=== PATIENT | male | born 1980 | race African-American/Black ===

== ENCOUNTER 2022-02-11 05:58 | Emergency (ER) | payer OTHER, SELFPAY ==
[2022-02-11] VITALS (41 sets, daily range): BP systolic 153–186; BP diastolic 76–120; PULSE 54–95; RESP 12–38; TEMP 37.2; O2SAT 98–100
--- NOTE | 2022-02-11 05:45 | RT.EKG_ITS ---
APPROVED REPORT Exam: Resting ECG Reason for Exam: withdrawal Patient Location: E HR:67 bpm ECG Measurements Heart Rate 67 AXIS WA 152 P 67 QRSd 90 QRS 87 QT 438 T 124 QTc 462 Conclusion Sinus rhythm...normal P axis, V-rate 60- 99 Probable left atrial enlargement...P >50mS, <-0.10mV V1 Probable LVH with secondary repol abnrm...multiple LVH criteria
--- NOTE | 2022-02-11 06:17 | ED.GENADUL_ITS ---
Discharge Plan Disposition Patient Disposition: STILL A PATIENT Condition: Stable Discharge Details Clinical Impression: Substance abuse, Chest pain, Abdominal pain Primary Care Provider: Liz Fonseca ED Provider: Giovani Casillas Home Meds and New Rx's Prescriptions: No Action ibuprofen 200 MG capsule 200 mg PO PRN PRN Medical Decision Making 41 yo male who had a prior thoracic aneurysm and was transferred to [facility] in 2018 and he states he had an aortic arch and valve replaced. He has been abusing substances recently including coacine and fentanyl and hasn't been taking any of his medications including warfarin. He was incarcerated two days ago and since being at the [facility] has had increased lethargy, nausea, sweats, and also abdominal and chest pain. He reportedly had a temp to 101 prior to arrival as well with the [facility] staff. He is drowsy on exam but answers to voice. He denies headaches, neck stiffnes, dyspnea, rashes. He denies ivdu states he was primarily smoking the drugs used on the streets. He is moving all his extremities equally, perrl, eomi. Clear lung sounds, no murmurs identified, is tender on abdominal exam in the ruq and rlq without guarding. He states his chest pain sometimes radiates to the back. Unclear etiology for his symptoms though suspect primarily cocaine and opiate withdrawal. Given his complaints of chest/abd/back pain will evaluate for possible aortic causes such as dissection with cta chest/abd/pelvis, along with ekg/troponin to evaluate for acs. Will also obtain cbc, cmp, lipase, and treat his symptoms with a dose of ativan as it is likely related to drug withdrawal. pt stable, feels mildly better after ativan, pending labs and imaging results, will be signed out to oncoming provider pending lab work and imaging results, dispo Differential Diagnosis Differential Diagnosis: cocaine withdrawal, aortic dissection, drug reaction Medical Records Medical records reviewed: Yes I reviewed the patient's medical records. ECG Data Attestation: I personally reviewed and interpreted this ECG (s) as follows: Prior ECG tracings: available for review Interpretation: sinus rhythm, rate of 67, pr 152, no stemi HPI General Mode of arrival: ambulatory . Date/Time Provider Initiated Documentation: 02/11/22 06:07 . Limitations to Documentation: no limitations . Information obtained by: patient and police . History of Present Illness 41 year old M presents to the emergency department with the chief complaint of detoxing, described as moderate, and it has been constant. No relieving factors improve symptom(s), No exacerbating factors reported . Patient notes chest pain and weakness. Patient did receive the following treatments prior to arrival, none Related Data Home Medications Medication Instructions Recorded Confirmed ibuprofen 200 mg capsule 200 mg PO PRN PRN 10/12/17 10/12/17 Allergies Allergy/AdvReac Type Severity Reaction Status Date / Time No Known Allergies Allergy Unverified 10/12/17 01:59 General Stated Complaint: GenMedical YAMILETH: 3 Review of Systems All systems reviewed & are unremarkable except as noted in HPI and below Constitutional Constitutional: Denies chills Cardiovascular Cardiovascular: Denies dyspnea Respiratory Respiratory: Denies cough and Denies dyspnea Gastrointestinal Gastrointestinal: Denies nausea and Denies vomiting Genitourinary Genitourinary: Denies dysuria Integumentary/Breasts Skin/Breast: Denies rash PFSH All Active Problems (Updated 02/11/22 @ 06:27 by Giovani Casillas MD) Substance abuse (Acute) Chest pain (Acute) Abdominal pain (Acute) Social History Smoking risk assessment performed?: No Exam Const General: no acute distress HENMT Head: normal to inspection Ears: external ears normal General nose exam: external nose normal Mouth: moist mucous membranes Eyes General: appearance normal, both eyes and all related structures Neck Neck: normal visual inspection Resp Effort & Inspection: normal respiratory effort and able to speak in complete sentences Cardio Rate: regular rate GI Palpation: soft and tender Skin General skin exam: no rashes or lesions noted Neuro General: patient oriented x3 Extrem General: normal to inspection Course Vital Signs Vital signs: Vital Signs Temperature 37.2 C 02/11/22 06:01 Pulse 70 02/11/22 06:01 Respiratory Rate 12 02/11/22 06:01 Blood Pressure 160/100 H 02/11/22 06:01 Pulse Oximetry 100 02/11/22 06:01 Temperature 37.2 C 02/11/22 06:01 Pulse 70 02/11/22 06:01 Respiratory Rate 12 02/11/22 06:01 Blood Pressure 160/100 H 02/11/22 06:01 Blood Pressure Position Sitting 02/11/22 06:01 Pulse Oximetry 100 02/11/22 06:01 Pain Level 0 02/11/22 06:01
[2022-02-11 06:25] LABS: Source Nasal/Nares
[2022-02-11 06:28] LABS: Abs Immature Grans 0.04 10^3/uL (0.0-0.06); Absolute Basophil Count 0.03 10^3/uL (0.0-0.2); Absolute Eosinophil Count 0.01 10^3/uL (0.0-0.7); Absolute Lymphocyte Count 0.97 10^3/uL (1.2-3.4); Absolute Monocyte Count 0.86 10^3/uL (0.1-0.8); Basophils % 0.2; Eosinophils % 0.1; HCT 46.9 % (40.0-50.0); HGB 15.9 g/dL (13.5-17.5); Immature Grans % 0.3; Lymphocytes % 7.2; MCH 27.4 pg (27.0-33.0); MCHC 33.9 % (32.0-36.0); MCV 81 fL (80-95); MPV 9.7 fL (8.0-11.0); Monocytes % 6.4; Neutrophils % 85.8; Platelet Count 293 10^3/uL (130-400); RBC 5.81 10^6/uL (4.36-5.78); RDW 12.6 % (11.8-14.1); RDW-SD 36.4 fL
[2022-02-11 06:31] LABS: Lactate 2.4 mmol/L (0.6-1.4)
[2022-02-11 06:39] LABS: Absolute Neutrophil Count 11.58 10^3/uL (1.2-6.7)
[2022-02-11 06:51] LABS: INR 1.3 (0.9-1.1); PTT Activated 23.5 sec (21.0-27.5); Prothrombin Time 12.7 sec (9.3-11.0); Troponin I < 50 ng/L (<or=60)
[2022-02-11 07:05] LABS: ALT 22 U/L (16-63); AST 22 U/L (15-37); Albumin 4.4 g/dL (3.4-5.0); Alkaline Phosphatase 49 U/L (46-116); Anion Gap 12.6 mmol/L (3-11); BUN 22 mg/dL (7-18); CO2 27.4 mmol/L (21.0-32.0); CREATININE 1.3 mg/dL (0.70-1.30); Calcium 9.6 mg/dL (8.5-10.1); Chloride 101 mmol/L (98-107); Estimated GFR 70.34 (mL/min/1.73m2); Glucose 122 mg/dL (74-106); Lipase 135 U/L (73-393); Potassium 3.8 mmol/L (3.5-5.1); Sodium 141 mmol/L (136-145); Total Protein 8.6 g/dL (6.4-8.2)
[2022-02-11] MEDS: Normal Saline 1,000 ML 1000 ML IV ×2 (07:14→09:14)
[2022-02-11 07:16] LABS: COVID-19 PCR Negative (Negative)
[2022-02-11 07:43] LABS: Procalcitonin < 0.1 ng/mL
--- NOTE | 2022-02-11 07:43 | ED.PROG_ITS ---
Date of service: 02/09/22 Time of Service: 07:30 Medical Decision Making Patient signed out to me at time of shift change by Dr. Casillas with CTA pending. Per corrections officers accompanying patient, patient was using fentanyl and cocaine prior to incarceration 2 days ago. He has been in an isolation room sin ce being brought into [facility]. Corrections officers report that patient has been very weak, has not been walking more than 20 feet at a time and has been essentially sleeping since he was brought to [facility]. He has had significant amounts of diarrhea and vomiting yesterday, none today. Patient had a fever of 100 degrees at approximately 530 this morning. Patient denies any pain or any symptoms to me. On my exam he is sleeping, he arouses easily to voice but falls asleep easily. Neurologic exam is nonfocal. There is no meningismus. CTA per radiology is negative for acute process. Unclear etiology of patient's somnolence at this time, may be related to cocaine washout. Exam/history is not consistent with meningitis, encephalitis at this time. EKG shows significant ST changes not present on prior 2017, repeat EKG obtained to screen for dynamic changes, no significant change from first EKG today. Patient had aortic aneurysm repair at [facility], will attempt to obtain EKG from their facility for comparison. Patient was WBC 13.5, procalcitonin/ESR/CRP within normal limits. Doubt bacterial infection at this time. Plan for continued IV fluids, will repeat lactate/BMP. EKG obtained from [facility] 10/15/2017, T wave inversions present 2, 3, aVF, V5, V6. Repeat trop negative, repeat lactate normal, AG closed. Pt up and walking to the bathroom without issue, now alert, no longer somnolent, no weakness. Non-focal neuro exam. Pt denies any pain. Unclear etiology of earlier fatigue. Dehydration, cocaine washout may be factors. Plan for outpt f/u. I had a lengthy discussion with [facility] facility nurse over the phone re: strict return precautions. I had a discussion with Patient regarding return to emergency department precautions, home care, and importance of outpatient follow-up. Pt verbalizes understanding of the plan and is amenable. Patient discharged to home with clear plan for outpatient follow-up. All questions were answered. Disposition decision was made weighing the risks and benefits of hospitalization versus outpatient treatment, the risk for further decompensation, and the patient's wishes. Patient Medical Records Medical records reviewed: Yes I reviewed the patient's medical records. Imaging Data Radiologic Study: Attestation: I personally reviewed and interpreted this imaging study as follows: Radiologist's impression: EXAM:? CT THORAX ? ABD/PEL CTA CLINICAL HISTORY: ? chest/abdomen pain. ? TECHNIQUE:? Imaging Protocol: ? Axial CT angiography was performed with multi- slice acquisition and multi-planar and/or 3D reconstructions. CONTRAST MATERIAL:? Intravenous: Omnipaque 350 contrast volume:100 mL Oral: No COMPARISON:? CT CTA THORAX from 10/12/2017 FINDINGS: CHEST: Tracheobronchial tree: Patent where visualized. Pulmonary parenchyma: No consolidation or dominant measurable mass. Mild emphysematous changes are seen in the lungs.? Pulmonary Arteries: No evidence of filling defect to suggest pulmonary emboli. Mediastinum and Avis: No dominant adenopathy or fluid collection. Visualized thyroid: Unremarkable. Pleura: No effusion or pneumothorax. Heart: The heart is not dilated. No coronary artery calcifications are seen. No pericardial effusion. Aorta: There is aneurysmal dilatation of the ascending aorta measuring 4.5 x 4 cm.? There is no dissection. Soft Tissues: There is gynecomastia.? Bones: Within normal limits for the patient's age. ABDOMEN AND PELVIS: Abdomen: Celiac axis/mesenteric arteries: No evidence of occlusion or significant stenosis.? Renal Arteries: No evidence of occlusion or significant stenosis.? There is a single renal artery perfusing each kidney. Aorta:? No evidence of occlusion or significant stenosis.? No aneurysm or dissection.? Mild atherosclerosis. Pelvis: Iliac Arteries:? No evidence of occlusion or significant stenosis.? Mild atherosclerosis. Common Femoral Arteries:? No evidence of occlusion or significant stenosis.? ABDOMEN: Liver: Normal density. No measurable mass. Gallbladder and Biliary Tract: No radiodense calculus or dilation. Pancreas: Normal density, no abnormal calcifications or inflammatory process. Spleen: Normal. Adrenals: No masses seen. Kidneys: Normal size, contour and axis. No radiodense stones or obstructive uropathy. No masses seen. Bowel: There is thickening of the wall of the distal stomach.? There is no evidence of bowel obstruction.? No evidence of acute appendicitis.? No other bowel wall thickening is appreciated.? Peritoneal Cavity: No ascites, collection or mesenteric inflammatory response. No free air. Lymph Nodes: Within normal limits. Bones: Within normal limits for the patient's age.? Sternal wires are in place. Soft Tissues: Unremarkable. PELVIS: Bladder: Symmetric distention, no gross wall thickening. Reproductive Organs: Unremarkable as visualized. Lymph Nodes: Within normal limits. Bones: Within normal limits for the patient's age.? IMPRESSION: 1. Aneurysmal dilatation of the ascending aorta measuring up to 4.5 cm.? No evidence of thoracic aortic dissection. 2. No evidence of abdominal or pelvic aneurysm or dissection. 3. Mild atherosclerosis in the abdominal aorta. 4. Mild thickening of the wall of the distal stomach.? This may be due to underdistention but an inflammatory infectious gastritis cannot be excluded. 5. Findings were discussed with Dr. Ashley Vallecillo at 8:55 a.m. on 02/11/2022. Lab Data Lab results reviewed: Yes I reviewed the patient's lab results. Labs: 02/11/22 06:43 Blood Blood Culture - Final NO GROWTH 120 HOURS 02/11/22 06:51 Blood Blood Culture - Final Corynebacterium Species Laboratory Tests Range/Units 02/11/22 02/11/22 02/11/22 06:00 06:00 06:00 WBC (4.4-10.8) 10^3/uL RBC (4.36-5.78) 10^6/uL Hgb (13.5-17.5) g/dL Hct (40.0-50.0) % MCV (80-95) fL MCH (27.0-33.0) pg MCHC (32.0-36.0) % RDW (11.8-14.1) % Plt Count (130-400) 10^3/uL MPV (8.0-11.0) fL Immature Gran % Neutrophils % Lymphocytes % Monocytes % Eosinophils % Basophils % Nucleated RBC % (0.0-0.3) % Absolute Neutrophils (1.2-6.7) 10^3/uL Absolute Lymphocytes (1.2-3.4) 10^3/uL Absolute Monocytes (0.1-0.8) 10^3/uL Absolute Eosinophils (0.0-0.7) 10^3/uL Absolute Basophils (0.0-0.2) 10^3/uL ESR (0-15) mm/hr PT (9.3-11.0) sec INR (0.9-1.1) APTT (21.0-27.5) sec VBG Lactate (0.6-1.4) mmol/L Sodium (136-145) mmol/L 141 Potassium (3.5-5.1) mmol/L 3.8 Chloride (98-107) mmol/L 101 Carbon Dioxide (21.0-32.0) mmol/L 27.4 Anion Gap (3-11) mmol/L 12.6 H BUN (7-18) mg/dL 22 H Creatinine (0.70-1.30) mg/dL 1.3 Est GFR (CKD-EPI 2020) (mL/min/1.73m2) 70.34 Glucose (74-106) mg/dL 122 H Calcium (8.5-10.1) mg/dL 9.6 Magnesium (1.8-2.4) mg/dL 2.0 Total Bilirubin (0.2-1.0) mg/dL 1.0 AST (15-37) U/L 22 ALT (16-63) U/L 22 Alkaline Phosphatase (46-116) U/L 49 Troponin I (<or=60) ng/L < 50 C-Reactive Protein (0.0-0.3) mg/dL Total Protein (6.4-8.2) g/dL 8.6 H Albumin (3.4-5.0) g/dL 4.4 Lipase (73-393) U/L 135 Procalcitonin ng/mL Urine Color Urine Clarity Urine pH Ur Specific [place] Urine Protein Urine Ketones Urine Blood Urine Nitrite Urine Bilirubin Urine Urobilinogen Ur Leukocyte Esterase Urine Glucose Urine Opiates Screen Urine Methadone Screen Ur Barbiturates Screen Ur Tricyclics Screen Ur Amphetamines Screen U Benzodiazepines Scrn Urine Cocaine Screen Ur THC Screen COVID-19 Source Nasal/Nares SARS-CoV-2 (PCR) (Negative) Negative Range/Units 02/11/22 02/11/22 02/11/22 06:00 06:00 06:00 WBC (4.4-10.8) 10^3/uL 13.50 H RBC (4.36-5.78) 10^6/uL 5.81 H Hgb (13.5-17.5) g/dL 15.9 Hct (40.0-50.0) % 46.9 MCV (80-95) fL 81 MCH (27.0-33.0) pg 27.4 MCHC (32.0-36.0) % 33.9 RDW (11.8-14.1) % 12.6 Plt Count (130-400) 10^3/uL 293 MPV (8.0-11.0) fL 9.7 Immature Gran % 0.3 Neutrophils % 85.8 Lymphocytes % 7.2 Monocytes % 6.4 Eosinophils % 0.1 Basophils % 0.2 Nucleated RBC % (0.0-0.3) % 0.0 Absolute Neutrophils (1.2-6.7) 10^3/uL 11.58 H Absolute Lymphocytes (1.2-3.4) 10^3/uL 0.97 L Absolute Monocytes (0.1-0.8) 10^3/uL 0.86 H Absolute Eosinophils (0.0-0.7) 10^3/uL 0.01 Absolute Basophils (0.0-0.2) 10^3/uL 0.03 ESR (0-15) mm/hr PT (9.3-11.0) sec 12.7 H INR (0.9-1.1) 1.3 H APTT (21.0-27.5) sec 23.5 VBG Lactate (0.6-1.4) mmol/L 2.4 H* Sodium (136-145) mmol/L Potassium (3.5-5.1) mmol/L Chloride (98-107) mmol/L Carbon Dioxide (21.0-32.0) mmol/L Anion Gap (3-11) mmol/L BUN (7-18) mg/dL Creatinine (0.70-1.30) mg/dL Est GFR (CKD-EPI 2020) (mL/min/1.73m2) Glucose (74-106) mg/dL Calcium (8.5-10.1) mg/dL Magnesium (1.8-2.4) mg/dL Total Bilirubin (0.2-1.0) mg/dL AST (15-37) U/L ALT (16-63) U/L Alkaline Phosphatase (46-116) U/L Troponin I (<or=60) ng/L C-Reactive Protein (0.0-0.3) mg/dL Total Protein (6.4-8.2) g/dL Albumin (3.4-5.0) g/dL Lipase (73-393) U/L Procalcitonin ng/mL < 0.1 Urine Color Urine Clarity Urine pH Ur Specific [place] Urine Protein Urine Ketones Urine Blood Urine Nitrite Urine Bilirubin Urine Urobilinogen Ur Leukocyte Esterase Urine Glucose Urine Opiates Screen Urine Methadone Screen Ur Barbiturates Screen Ur Tricyclics Screen Ur Amphetamines Screen U Benzodiazepines Scrn Urine Cocaine Screen Ur THC Screen COVID-19 Source SARS-CoV-2 (PCR) (Negative) Range/Units 02/11/22 02/11/22 02/11/22 06:00 06:00 07:09 WBC (4.4-10.8) 10^3/uL RBC (4.36-5.78) 10^6/uL Hgb (13.5-17.5) g/dL Hct (40.0-50.0) % MCV (80-95) fL MCH (27.0-33.0) pg MCHC (32.0-36.0) % RDW (11.8-14.1) % Plt Count (130-400) 10^3/uL MPV (8.0-11.0) fL Immature Gran % Neutrophils % Lymphocytes % Monocytes % Eosinophils % Basophils % Nucleated RBC % (0.0-0.3) % Absolute Neutrophils (1.2-6.7) 10^3/uL Absolute Lymphocytes (1.2-3.4) 10^3/uL Absolute Monocytes (0.1-0.8) 10^3/uL Absolute Eosinophils (0.0-0.7) 10^3/uL Absolute Basophils (0.0-0.2) 10^3/uL ESR (0-15) mm/hr 5 PT (9.3-11.0) sec INR (0.9-1.1) APTT (21.0-27.5) sec VBG Lactate (0.6-1.4) mmol/L Sodium (136-145) mmol/L Potassium (3.5-5.1) mmol/L Chloride (98-107) mmol/L Carbon Dioxide (21.0-32.0) mmol/L Anion Gap (3-11) mmol/L BUN (7-18) mg/dL Creatinine (0.70-1.30) mg/dL Est GFR (CKD-EPI 2020) (mL/min/1.73m2) Glucose (74-106) mg/dL Calcium (8.5-10.1) mg/dL Magnesium (1.8-2.4) mg/dL Total Bilirubin (0.2-1.0) mg/dL AST (15-37) U/L ALT (16-63) U/L Alkaline Phosphatase (46-116) U/L Troponin I (<or=60) ng/L C-Reactive Protein (0.0-0.3) mg/dL 0.06 Total Protein (6.4-8.2) g/dL Albumin (3.4-5.0) g/dL Lipase (73-393) U/L Procalcitonin ng/mL Urine Color Urine Clarity Urine pH Ur Specific [place] Urine Protein Urine Ketones Urine Blood Urine Nitrite Urine Bilirubin Urine Urobilinogen Ur Leukocyte Esterase Urine Glucose Urine Opiates Screen Cancelled Urine Methadone Screen Cancelled Ur Barbiturates Screen Cancelled Ur Tricyclics Screen Cancelled Ur Amphetamines Screen Cancelled U Benzodiazepines Scrn Cancelled Urine Cocaine Screen Cancelled Ur THC Screen Cancelled COVID-19 Source SARS-CoV-2 (PCR) (Negative) Range/Units 02/11/22 02/11/22 02/11/22 07:09 09:19 12:27 WBC (4.4-10.8) 10^3/uL RBC (4.36-5.78) 10^6/uL Hgb (13.5-17.5) g/dL Hct (40.0-50.0) % MCV (80-95) fL MCH (27.0-33.0) pg MCHC (32.0-36.0) % RDW (11.8-14.1) % Plt Count (130-400) 10^3/uL MPV (8.0-11.0) fL Immature Gran % Neutrophils % Lymphocytes % Monocytes % Eosinophils % Basophils % Nucleated RBC % (0.0-0.3) % Absolute Neutrophils (1.2-6.7) 10^3/uL Absolute Lymphocytes (1.2-3.4) 10^3/uL Absolute Monocytes (0.1-0.8) 10^3/uL Absolute Eosinophils (0.0-0.7) 10^3/uL Absolute Basophils (0.0-0.2) 10^3/uL ESR (0-15) mm/hr PT (9.3-11.0) sec INR (0.9-1.1) APTT (21.0-27.5) sec VBG Lactate (0.6-1.4) mmol/L Sodium (136-145) mmol/L Potassium (3.5-5.1) mmol/L Chloride (98-107) mmol/L Carbon Dioxide (21.0-32.0) mmol/L Anion Gap (3-11) mmol/L BUN (7-18) mg/dL Creatinine (0.70-1.30) mg/dL Est GFR (CKD-EPI 2020) (mL/min/1.73m2) Glucose (74-106) mg/dL Calcium (8.5-10.1) mg/dL Magnesium (1.8-2.4) mg/dL Total Bilirubin (0.2-1.0) mg/dL AST (15-37) U/L ALT (16-63) U/L Alkaline Phosphatase (46-116) U/L Troponin I (<or=60) ng/L < 50 < 50 C-Reactive Protein (0.0-0.3) mg/dL Total Protein (6.4-8.2) g/dL Albumin (3.4-5.0) g/dL Lipase (73-393) U/L Procalcitonin ng/mL Urine Color Cancelled Urine Clarity Cancelled Urine pH Cancelled Ur Specific [place] Cancelled Urine Protein Cancelled Urine Ketones Cancelled Urine Blood Cancelled Urine Nitrite Cancelled Urine Bilirubin Cancelled Urine Urobilinogen Cancelled Ur Leukocyte Esterase Cancelled Urine Glucose Cancelled Urine Opiates Screen Urine Methadone Screen Ur Barbiturates Screen Ur Tricyclics Screen Ur Amphetamines Screen U Benzodiazepines Scrn Urine Cocaine Screen Ur THC Screen COVID-19 Source SARS-CoV-2 (PCR) (Negative) Range/Units 02/11/22 02/11/22 12:30 12:30 WBC (4.4-10.8) 10^3/uL RBC (4.36-5.78) 10^6/uL Hgb (13.5-17.5) g/dL Hct (40.0-50.0) % MCV (80-95) fL MCH (27.0-33.0) pg MCHC (32.0-36.0) % RDW (11.8-14.1) % Plt Count (130-400) 10^3/uL MPV (8.0-11.0) fL Immature Gran % Neutrophils % Lymphocytes % Monocytes % Eosinophils % Basophils % Nucleated RBC % (0.0-0.3) % Absolute Neutrophils (1.2-6.7) 10^3/uL Absolute Lymphocytes (1.2-3.4) 10^3/uL Absolute Monocytes (0.1-0.8) 10^3/uL Absolute Eosinophils (0.0-0.7) 10^3/uL Absolute Basophils (0.0-0.2) 10^3/uL ESR (0-15) mm/hr PT (9.3-11.0) sec INR (0.9-1.1) APTT (21.0-27.5) sec VBG Lactate (0.6-1.4) mmol/L 1.2 Sodium (136-145) mmol/L 141 Potassium (3.5-5.1) mmol/L 3.5 Chloride (98-107) mmol/L 106 Carbon Dioxide (21.0-32.0) mmol/L 25.0 Anion Gap (3-11) mmol/L 10.0 BUN (7-18) mg/dL 20 H Creatinine (0.70-1.30) mg/dL 1.0 Est GFR (CKD-EPI 2020) (mL/min/1.73m2) 96.37 Glucose (74-106) mg/dL 125 H Calcium (8.5-10.1) mg/dL 8.8 Magnesium (1.8-2.4) mg/dL Total Bilirubin (0.2-1.0) mg/dL AST (15-37) U/L ALT (16-63) U/L Alkaline Phosphatase (46-116) U/L Troponin I (<or=60) ng/L C-Reactive Protein (0.0-0.3) mg/dL Total Protein (6.4-8.2) g/dL Albumin (3.4-5.0) g/dL Lipase (73-393) U/L Procalcitonin ng/mL Urine Color Urine Clarity Urine pH Ur Specific [place] Urine Protein Urine Ketones Urine Blood Urine Nitrite Urine Bilirubin Urine Urobilinogen Ur Leukocyte Esterase Urine Glucose Urine Opiates Screen Urine Methadone Screen Ur Barbiturates Screen Ur Tricyclics Screen Ur Amphetamines Screen U Benzodiazepines Scrn Urine Cocaine Screen Ur THC Screen COVID-19 Source SARS-CoV-2 (PCR) (Negative) ECG Data Attestation: I personally reviewed and interpreted this ECG (s) as follows: Interpretation: EKG 8: 36 shows sinus rhythm at 65, normal axis, diffuse T wave inversions, no STEMI, no major change from earlier EKG, nondiagnostic EKG Sign Out Sign Out Data: Sign Out Comment: Patient states history of aortic arch and aortic valve replacement, has been smoking cocaine and fentanyl for awhile and was incarcerated 2 days ago, increased general malaise, restlessness, reporting chest, back and abdomen pain. [facility] staff reported temp of 101, afebrile here, pending ct results and reassessment. Last updated by Giovani Casillas MD at 02/11/22 07:12 Discharge Plan Disposition Patient Disposition: [facility] Condition: Stable Discharge Details Chief Complaint: GenMedical Clinical Impression: Substance abuse, Chest pain, Abdominal pain, Hypertension Primary Care Provider: Liz Fonseca ED Provider: Enriqueta Vallecillo Home Meds and New Rx's Prescriptions: Continued ibuprofen 200 MG capsule 200 mg PO PRN PRN clonidine HCl 0.1 mg Tablet 0.1 mg PO BID Rx Instructions: for 5 days hydroxyzine HCl 50 mg Tablet 50 mg PO BID Rx Instructions: for 5 days. No Action warfarin 5 mg Tablet 5 mg PO USEASDIRECTD Rx Instructions: 5mg 1 tab every Wednesday starts 02/16/22 enoxaparin 80 mg/0.8 mL Syringe 80 mg subcut Q12H Qty: 8 0RF Rx Instructions: until INR above 2.5 Discharge Instructions Instructions: Chest Pain (ED), Cocaine Abuse (ED), Abdominal Pain (ED), Hypertension (ED), Opioid Withdrawal (ED) Additional Instructions: Please return immediately to the emergency department if you develop any new or worsening symptoms, if your condition does not improve as expected, or if you become otherwise concerned. It is extremely important that you are seen as soon as possible in follow-up for this visit by your primary care doctor. Discharge Data Discharge Date/Time-TO BE ENTERED AT DEPARTURE: 02/11/22 13:39
--- NOTE | 2022-02-11 07:51 | DI.CT_ITS ---
Exam(s) CT THORAX ABD/PEL CTA EXAM: CT THORAX ABD/PEL CTA CLINICAL HISTORY: chest/abdomen pain. TECHNIQUE: Imaging Protocol: Axial CT angiography was performed with multi-slice acquisition and m ulti-planar and/or 3D reconstructions. CONTRAST MATERIAL: Intravenous: Omnipaque 350 contrast volume:100 mL Oral: No COMPARISON: CT CTA THORAX from 10/12/2017 FINDINGS: CHEST: Tracheobronchial tree: Patent where visualized. Pulmonary parenchyma: No consolidation or dominant measurable mass. Mild emphysematous changes are se en in the lungs. Pulmonary Arteries: No evidence of filling defect to suggest pulmonary emboli. Mediastinum and Avis: No dominant adenopathy or fluid collection. Visualized thyroid: Unremarkable. Pleura: No effusion or pneumothorax. Heart: The heart is not dilated. No coronary artery calcifications are seen. No pericardial effusion. Aorta: There is aneurysmal dilatation of the ascending aorta measuring 4.5 x 4 cm. There is no disse ction. Soft Tissues: There is gynecomastia. Bones: Within normal limits for the patient's age. ABDOMEN AND PELVIS: Abdomen: Celiac axis/mesenteric arteries: No evidence of occlusion or significant stenosis. Renal Arteries: No evidence of occlusion or significant stenosis. There is a single renal artery per fusing each kidney. Aorta: No evidence of occlusion or significant stenosis. No aneurysm or dissection. Mild atheroscl erosis. Pelvis: Iliac Arteries: No evidence of occlusion or significant stenosis. Mild atherosclerosis. Common Femoral Arteries: No evidence of occlusion or significant stenosis. ABDOMEN: Liver: Normal density. No measurable mass. Gallbladder and Biliary Tract: No radiodense calculus or dilation. Pancreas: Normal density, no abnormal calcifications or inflammatory process. Spleen: Normal. Adrenals: No masses seen. Kidneys: Normal size, contour and axis. No radiodense stones or obstructive uropathy. No masses seen. Bowel: There is thickening of the wall of the distal stomach. There is no evidence of bowel obstruct ion. No evidence of acute appendicitis. No other bowel wall thickening is appreciated. Peritoneal Cavity: No ascites, collection or mesenteric inflammatory response. No free air. Lymph Nodes: Within normal limits. Bones: Within normal limits for the patient's age. Sternal wires are in place. Soft Tissues: Unremarkable. PELVIS: Bladder: Symmetric distention, no gross wall thickening. Reproductive Organs: Unremarkable as visualized. Lymph Nodes: Within normal limits. Bones: Within normal limits for the patient's age. IMPRESSION: 1. Aneurysmal dilatation of the ascending aorta measuring up to 4.5 cm. No evidence of thoracic aort ic dissection. 2. No evidence of abdominal or pelvic aneurysm or dissection. 3. Mild atherosclerosis in the abdominal aorta. 4. Mild thickening of the wall of the distal stomach. This may be due to underdistention but an infl ammatory infectious gastritis cannot be excluded. 5. Findings were discussed with Dr. Ashley Vallecillo at 8:55 a.m. on 02/11/2022. RADIATION DOSE DELIVERED: 888.34mGy.cm Total DLP DATA REPOSITORY: All CT scans at this facility are submitted to the National Radiology Data Registry (NRDR) Dose Index Registry (DIR) with the [employer] (A[employer]). RADIATION OPTIMIZATION: All CT scans at this facility use at least one of these dose optimization te chniques: automated exposure control; mA and/or kV adjustment per patient size (includes targeted exa ms where dose is matched to clinical indication); or iterative reconstruction.
[2022-02-11] MEDS: Omnipaque 350 MG/ML 100 ML BTL IJ (08:00)
--- NOTE | 2022-02-11 08:15 | RT.EKG_ITS ---
APPROVED REPORT Exam: Resting ECG Reason for Exam: chest pain Patient Location: E HR:65 bpm ECG Measurements Heart Rate 65 AXIS NC 152 P 96 QRSd 89 QRS 49 QT 436 T 102 QTc 455 Conclusion Sinus rhythm...normal P axis, V-rate 60- 99 Probable left atrial enlargement...P >50mS, <-0.10mV V1 LVH with secondary repolarization abnormality...multi-LVH criteria, abnrm ST-T Probable anterior infarct, age indeterminate...Q >35mS, T neg, V2-V5 sinus rhythm at 65, normal axis, diffuse T wave inversions, no STEMI, no major change from earlier EK G, nondiagnostic EKG
[2022-02-11 08:44] LABS: ESR 5 mm/hr (0-15)
[2022-02-11 08:53] LABS: C-Reactive Protein 0.06 mg/dL (0.0-0.3)
--- NOTE | 2022-02-11 09:00 | DI.CT_ITS ---
Exam(s) CT HEAD WO EXAM: CT HEAD WO CLINICAL HISTORY: generalized weakness. TECHNIQUE: Imaging Protocol: Axial computed tomography images with coronal and sagittal reformatted images were created and reviewed COMPARISON: No exams were available for comparison FINDINGS: The examination is limited due to patient motion artifact. Intravenous contrast is noted from the patient's CT scan earlier in the day. Ventricles and Extra axial spaces: Normal in size and morphology for the patient's age. Hemorrhage: None. Cerebral parenchyma: Normal. Midline shift: None. Brainstem/Cerebellum: Normal. Calvarium: Normal. Visualized Paranasal sinuses/Mastoids: Clear. Soft Tissues: Unremarkable. IMPRESSION: 1. No acute intracranial process. 2. Findings were discussed with the emergency department at 10:07 a.m. on 02/11/2022. RADIATION DOSE DELIVERED: 891.86mGy.cm Total DLP DATA REPOSITORY: All CT scans at this facility are submitted to the National Radiology Data Registry (NRDR) Dose Index Registry (DIR) with the [employer] (ACR). RADIATION OPTIMIZATION: All CT scans at this facility use at least one of these dose optimization te chniques: automated exposure control; mA and/or kV adjustment per patient size (includes targeted exa ms where dose is matched to clinical indication); or iterative reconstruction.
[2022-02-11 09:48] LABS: Troponin I < 50 ng/L (<or=60)
[2022-02-11 12:35] LABS: Lactate 1.2 mmol/L (0.6-1.4)
[2022-02-11 12:47] LABS: BUN 20 mg/dL (7-18); Calcium 8.8 mg/dL (8.5-10.1); Chloride 106 mmol/L (98-107); Estimated GFR 96.37 (mL/min/1.73m2); Glucose 125 mg/dL (74-106); Potassium 3.5 mmol/L (3.5-5.1); Sodium 141 mmol/L (136-145)
[2022-02-11 12:56] LABS: Troponin I < 50 ng/L (<or=60)
== END 2022-02-11 13:39 | disposition home or self-care (01) ==
PROVIDERS: Emergency Medicine; Emergency Provider Student in an Organized Health Care Education/Training Program; PCP Nurse Practitioner Adult Health
DX: R07.9 Chest pain, unspecified (principal); R10.11 Right upper quadrant pain; F14.10 Cocaine abuse, uncomplicated; F11.10 Opioid abuse, uncomplicated; R10.31 Right lower quadrant pain; R40.0 Somnolence; R53.81 Other malaise; M54.9 Dorsalgia, unspecified; I10 Essential (primary) hypertension; Z20.822 Contact with and (suspected) exposure to COVID-19
CPT/HCPCS: 36410; 71275; 80048; 80053; 80307; 83690; 84145; 85652; 87040; 87635; 93005; 96361; 96374; 99285; 70450; 74174; 81003; 83605; 83735; 84484; 85025; 85610; 85730; 86140; 93010; 99284; J3490

== ENCOUNTER 2022-02-13 10:49 | Observation (INO) | payer OTHER, SELFPAY ==
[2022-02-13] VITALS (27 sets, daily range): BP systolic 137–166; BP diastolic 87–106; PULSE 60–84; RESP 16–30; TEMP 36.6–37.1; O2SAT 98–100
--- NOTE | 2022-02-13 11:00 | RT.EKG_ITS ---
APPROVED REPORT Exam: Resting ECG Reason for Exam: chest tightness Patient Location: E HR:66 bpm ECG Measurements Heart Rate [address] 141 P 72 QRSd 88 QRS 8 QT 410 T 103 QTc 430 Conclusion Sinus rhythm...normal P axis, V-rate 60- 99 Anteroseptal infarct, age indeterminate...Q >35mS, T neg, V1-V2 Abnormal T, consider ischemia, lateral leads...T <-0.20mV, I aVL V5 V6. Sinus. Normal axis. ST depressions in anterolateral leads, seen in previous EKG. No STEMI. I have reviewed and interpreted ECG and agree with software generated interpretation.
--- NOTE | 2022-02-13 11:25 | W.ED.GENAD ---
Discharge Plan Disposition Patient Disposition: Admit to [facility] Condition: Stable Discharge Details Clinical Impression: Bacteremia Admit Date/Time: 02/13/22 13:23 Admit Provider: Troy Gutierrez Attending Provider: Troy Gutierrez Primary Care Provider: Liz Fonseca ED Provider: Marcel Vallecillo Discharge Data Discharge Date/Time-TO BE ENTERED AT DEPARTURE: 02/13/22 14:44 Medical Decision Making Concern for bacteremia, other. Pt underwent extensive non-diagnostic w/u two days ago without progression of symptoms. Exam/hx at this time is not c/w meningitis, acute CVA, ACS, pulmonary embolism, acute aortic pathology, acute sepsis. Plan for IV placement, IVF hydration, screening labs. Pt will need IV abx and admission given blood culture results. Pt signed out to Dr. Marcel Vallecillo with labs, admission pending. Medical Records Medical records reviewed: Yes I reviewed the patient's medical records. HPI General Date/Time Provider Initiated Documentation: 02/13/22 11:23. Limitations to Documentation: no limitations. Information obtained by: patient, RN notes reviewed and old records reviewed. HPI Narrative: Silvestre Mccray is a 41 y/o man with h/o mechanical aortic valve replacement presenting to the ED with weakness, also called back for blood culture results. Pt seen here in the ED 2 days ago for AMS/generalized weakness that began after recent incarceration. Pt reports h/o fentanyl and cocaine use. Pt underwent non-diagnostic w/u, recieved IVF hydration, improved, and was released back to senior care. Blood cultures resulted as 1 bottle positive for GPR, [facility] facility was called back and Pt was asked to return. Nurse at [facility] noted in phone call that Pt was initially improved after returning from ED 2 days ago, but has since again developed similar somnolence and weakness. Pt reports that he feels generally weak. He denies any pain, fever, cough vomiting, diarrhea, focal weakness, numbness, rash, swelling. Related Data Home Medications Medication Instructions Recorded Confirmed ibuprofen 200 mg capsule 200 mg PO PRN PRN 10/12/17 02/11/22 clonidine HCl 0.1 mg tablet 0.1 mg PO BID 02/11/22 02/13/22 hydroxyzine HCl 50 mg tablet 50 mg PO BID 02/11/22 02/13/22 warfarin 5 mg tablet 5 mg PO USEASDIRECTD 02/13/22 02/13/22 enoxaparin 80 mg/0.8 mL 80 mg (0.8 mL) subcut Q12H #8 mL 02/14/22 subcutaneous syringe Previous Rx's Medication Instructions Recorded enoxaparin 80 mg/0.8 mL 80 mg (0.8 mL) subcut Q12H #8 mL 02/14/22 subcutaneous syringe Allergies Allergy/AdvReac Type Severity Reaction Status Date / Time No Known Allergies Allergy Unverified 10/12/17 01:59 General Stated Complaint: GenMedical YAMILETH: 3 Review of Systems Narrative: Constitutional: denies fevers, reports generalized weakness Eyes: denies eye pain ENT: denies ear pain, dental pain, sore throat Cardiovascular: denies chest pain, edema Respiratory: denies SOB, cough GI: denies abdominal pain, vomiting, diarrhea : denies flank pain MSK: denies back pain, neck pain, arthralgias, myalgias Skin: denies rash Neuro: denies headaches, numbness, focal weakness PFSH All Active Problems Bacteremia (Acute) Left knee pain (Acute) Mechanical heart valve present (Acute) Social History Smoking risk assessment performed?: No Alcohol Intake: never Drug use: Daily Substance use type: crack/cocaine, opiates and IV drugs Additional Social history: patient is in custody. Exam Narrative Exam Narrative: Constitutional: well and [id number], alert, conversing normally HENT: head atraumatic/normocephalic/normal inspection, mucous membranes moist Eyes: conjunctiva normal, sclera normal, pupils 3mm b/l Neck: no stridor, normal ROM, trachea midline Chest: normal inspection Resp: normal work of breathing, speaking in full sentences Cardio: normal rate, normal rhythm GI: abdomen soft, non-tender, non-distended Back: normal inspection, no rash Skin: warm, dry, normal color, no rash Neuro: alert, not altered, grossly non-focal, motor 5/5 throughout, normal tone Ext: no edema Psych: normal mood, normal affect, normal behavior Course Vital Signs Vital signs: Vital Signs Temperature 37.1 C 02/13/22 10:55 Pulse 70 02/13/22 10:55 Respiratory Rate 28 H 02/13/22 10:55 Blood Pressure 145/102 H 02/13/22 10:55 Temperature 37.1 C 02/13/22 10:55 Temperature Source Skin 02/13/22 10:55 Pulse 70 02/13/22 10:55 Respiratory Rate 24 02/13/22 10:59 Respiratory Effort 02/13/22 11:03 Respiratory Pattern Tachypnea 02/13/22 10:59 Blood Pressure 145/102 H 02/13/22 10:55 Blood Pressure Position Supine 02/13/22 10:55 Oxygen Delivery Method Room Air 02/13/22 10:55 Oxygen Flow Rate 0 02/13/22 10:55 Pain Level 8 02/13/22 10:55 Lab/Test Results Lab/Test Results: 02/13/22 11:23 Blood Blood Culture - Pending 02/13/22 11:23 Blood Blood Culture - Pending
[2022-02-13] MEDS: Normal Saline 1,000 ML 1000 ML IV (11:43)
[2022-02-13 11:49] LABS: ESR 2 mm/hr (0-15)
[2022-02-13 11:50] LABS: Lactate 1.5 mmol/L (0.6-1.4)
[2022-02-13 11:51] LABS: Abs Immature Grans 0.03 10^3/uL (0.0-0.06); Absolute Basophil Count 0.03 10^3/uL (0.0-0.2); Absolute Eosinophil Count 0.03 10^3/uL (0.0-0.7); Absolute Monocyte Count 0.64 10^3/uL (0.1-0.8); Absolute Neutrophil Count 7.57 10^3/uL (1.2-6.7); Basophils % 0.3; Eosinophils % 0.3; HCT 44.1 % (40.0-50.0); Immature Grans % 0.3; MCH 27.4 pg (27.0-33.0); MCV 81 fL (80-95); MPV 9.5 fL (8.0-11.0); Monocytes % 6.4; Neutrophils % 75.7; Platelet Count 251 10^3/uL (130-400); RBC 5.47 10^6/uL (4.36-5.78); RDW 12.8 % (11.8-14.1); RDW-SD 37.3 fL
[2022-02-13 12:18] LABS: ALT 23 U/L (16-63); AST 21 U/L (15-37); Albumin 3.7 g/dL (3.4-5.0); Alkaline Phosphatase 40 U/L (46-116); Anion Gap 9.7 mmol/L (3-11); BUN 22 mg/dL (7-18); Bilirubin, Total 0.7 mg/dL (0.2-1.0); CO2 26.3 mmol/L (21.0-32.0); CREATININE 1.2 mg/dL (0.70-1.30); Calcium 8.7 mg/dL (8.5-10.1); Chloride 107 mmol/L (98-107); Estimated GFR 77.43 (mL/min/1.73m2); Glucose 99 mg/dL (74-106); Potassium 3.2 mmol/L (3.5-5.1); Sodium 143 mmol/L (136-145); Total Protein 7.7 g/dL (6.4-8.2); Troponin I < 50 ng/L (<or=60)
[2022-02-13 12:22] LABS: C-Reactive Protein < 0.05 mg/dL (0.0-0.3)
[2022-02-13] MEDS: VANCOMYCIN/WATER (PEG) 1.5 GM/300 ML BAG IVPB (12:29)
--- NOTE | 2022-02-13 13:35 | W.EDPROG ---
Date of service: 02/13/22 Time of Service: 13:35 Medical Decision Making Care was signed out by Dr. Enriqueta Vallecillo with plan to follow-up on labs and reassess patient for disposition. Patient was seen here 2 days ago for generalized weakness, was given IV fluid bolus and condition improved, he was discharged back to half-way. Patient was improved for some time and then declined and now returns with generalized weakness again. No fever. Patient has a history of substance abuse including fentanyl and cocaine which he snorts. He denied IV drug use. Patient was reassessed I discussed results with him. Patient does note history of aortic valve replacement 2017. He denies history of bacteremia or significant bacterial infection. Blood cultures from prior ED visit 02/11/2022 growing gram-positive tita. I will initiate broad-spectrum antibiotic coverage. Plan for admission. Patient will need further work-up diagnostics. Case was discussed with on-call hospitalist, Dr. Gutierrez. He will admit the patient. Care transitioned at time of admission. Lab Data Lab results reviewed: Yes I reviewed the patient's lab results. Labs: 02/13/22 12:20 Blood Blood Culture - Pending 02/13/22 10:40 Blood Blood Culture - Pending Laboratory Tests Range/Units 02/13/22 02/13/22 02/13/22 10:40 10:40 10:40 WBC (4.4-10.8) 10^3/uL RBC (4.36-5.78) 10^6/uL Hgb (13.5-17.5) g/dL Hct (40.0-50.0) % MCV (80-95) fL MCH (27.0-33.0) pg MCHC (32.0-36.0) % RDW (11.8-14.1) % Plt Count (130-400) 10^3/uL MPV (8.0-11.0) fL Immature Gran % Neutrophils % Lymphocytes % Monocytes % Eosinophils % Basophils % Nucleated RBC % (0.0-0.3) % Absolute Neutrophils (1.2-6.7) 10^3/uL Absolute Lymphocytes (1.2-3.4) 10^3/uL Absolute Monocytes (0.1-0.8) 10^3/uL Absolute Eosinophils (0.0-0.7) 10^3/uL Absolute Basophils (0.0-0.2) 10^3/uL ESR (0-15) mm/hr 2 VBG Lactate (0.6-1.4) mmol/L 1.5 H Sodium (136-145) mmol/L 143 Potassium (3.5-5.1) mmol/L 3.2 L Chloride (98-107) mmol/L 107 Carbon Dioxide (21.0-32.0) mmol/L 26.3 Anion Gap (3-11) mmol/L 9.7 BUN (7-18) mg/dL 22 H Creatinine (0.70-1.30) mg/dL 1.2 Est GFR (CKD-EPI 2020) (mL/min/1.73m2) 77.43 Glucose (74-106) mg/dL 99 Calcium (8.5-10.1) mg/dL 8.7 Total Bilirubin (0.2-1.0) mg/dL 0.7 AST (15-37) U/L 21 ALT (16-63) U/L 23 Alkaline Phosphatase (46-116) U/L 40 L Troponin I (<or=60) ng/L < 50 C-Reactive Protein (0.0-0.3) mg/dL < 0.05 Total Protein (6.4-8.2) g/dL 7.7 Albumin (3.4-5.0) g/dL 3.7 Range/Units 02/13/22 10:40 WBC (4.4-10.8) 10^3/uL 10.00 RBC (4.36-5.78) 10^6/uL 5.47 Hgb (13.5-17.5) g/dL 15.0 Hct (40.0-50.0) % 44.1 MCV (80-95) fL 81 MCH (27.0-33.0) pg 27.4 MCHC (32.0-36.0) % 34.0 RDW (11.8-14.1) % 12.8 Plt Count (130-400) 10^3/uL 251 MPV (8.0-11.0) fL 9.5 Immature Gran % 0.3 Neutrophils % 75.7 Lymphocytes % 17.0 Monocytes % 6.4 Eosinophils % 0.3 Basophils % 0.3 Nucleated RBC % (0.0-0.3) % 0.0 Absolute Neutrophils (1.2-6.7) 10^3/uL 7.57 H Absolute Lymphocytes (1.2-3.4) 10^3/uL 1.70 Absolute Monocytes (0.1-0.8) 10^3/uL 0.64 Absolute Eosinophils (0.0-0.7) 10^3/uL 0.03 Absolute Basophils (0.0-0.2) 10^3/uL 0.03 ESR (0-15) mm/hr VBG Lactate (0.6-1.4) mmol/L Sodium (136-145) mmol/L Potassium (3.5-5.1) mmol/L Chloride (98-107) mmol/L Carbon Dioxide (21.0-32.0) mmol/L Anion Gap (3-11) mmol/L BUN (7-18) mg/dL Creatinine (0.70-1.30) mg/dL Est GFR (CKD-EPI 2020) (mL/min/1.73m2) Glucose (74-106) mg/dL Calcium (8.5-10.1) mg/dL Total Bilirubin (0.2-1.0) mg/dL AST (15-37) U/L ALT (16-63) U/L Alkaline Phosphatase (46-116) U/L Troponin I (<or=60) ng/L C-Reactive Protein (0.0-0.3) mg/dL Total Protein (6.4-8.2) g/dL Albumin (3.4-5.0) g/dL Discharge Plan Disposition Patient Disposition: Admit to [facility] Condition: Stable Discharge Details Chief Complaint: GenMedical Clinical Impression: Bacteremia Admit Date/Time: 02/13/22 13:23 Admit Provider: Troy Gutierrez Attending Provider: Troy Gutierrez Primary Care Provider: Liz Fonseca ED Provider: Marcel Vallecillo Discharge Instructions Activity:: Activity as Tolerated Equipment/Supplies:: No Equipment Needed Diet:: As Tolerated Discharge Data Discharge Date/Time-TO BE ENTERED AT DEPARTURE: 02/13/22 14:44
[2022-02-13 14:36] LABS: Source Nasal/Nares
[2022-02-13 15:11] LABS: COVID-19 PCR Negative (Negative)
--- NOTE | 2022-02-13 15:53 | INITIAL_ITS ---
- If Service Date Differs Date of service: 02/13/22 Time of Service: 15:53 Care Management Initial Assess REASON FOR HOSPITALIZATION:: Bacteremia PAST MEDICAL HISTORY/PAST SURGICAL HISTORY:: Substance use (Acute) crack/cocaine, opiates and IV drugs-recently presented to [facility] for OD on fentanyl BC showed signs of infection so he was asked to return to [facility]. Chest pain (Acute). Abdominal pain (Acute). Hypertension (Chronic) PREVIOUS FUNCTIONAL STATUS/SOCIAL/FAMILY SUPPORTS:: Silvestre presents to [facility] from [facility] he recently presented to [facility] for OD on fentanyl BC showed signs of infection so he was asked to return to [facility]. Es Vasquez (Mother) and brother, Anjel listed as contacts. CURRENT FUNCTIONAL STATUS:: Now on Med/Surg, accompanied by [facility] Guards. ADVANCE DIRECTIVES:: None on file. Has patient been provided with info about the portal/API?: No Did the patient sign up for the portal?: No CODE STATUS:: Full Code INSURANCE COVERAGE / FINANCIAL ISSUES:: [facility] PRIMARY CARE PHYSICIAN:: Liz Fonseca POTENTIAL DISCHARGE NEEDS:: Coordinated return to [facility]. PATIENT/FAMILY EDUCATION NEEDS:: Review discharge instructions. ANTICIPATED BARRIERS TO DISCHARGE:: None identified. TRANSPORTATION:: [facility] Transport PLAN:: Silvestre will return to the [facility] once medically cleared. He will tranport via the facility's secure van.
--- NOTE | 2022-02-13 15:53 | PDOC.CMIN ---
- If Service Date Differs Date of service: 02/13/22 Time of Service: 15:53 Care Management Initial Assess REASON FOR HOSPITALIZATION:: Bacteremia PAST MEDICAL HISTORY/PAST SURGICAL HISTORY:: Substance use (Acute) crack/cocaine, opiates and IV drugs-recently presented to [facility] for OD on fentanyl BC showed signs of infection so he was asked to return to [facility]. Chest pain (Acute). Abdominal pain (Acute). Hypertension (Chronic) PREVIOUS FUNCTIONAL STATUS/SOCIAL/FAMILY SUPPORTS:: Silvestre presents to [facility] from [facility] he recently presented to [facility] for OD on fentanyl BC showed signs of infection so he was asked to return to [facility]. Es Vasquez (Mother) and brother, Anjel listed as contacts. CURRENT FUNCTIONAL STATUS:: Now on Med/Surg, accompanied by [facility] Guards. ADVANCE DIRECTIVES:: None on file. Has patient been provided with info about the portal/API?: No Did the patient sign up for the portal?: No CODE STATUS:: Full Code INSURANCE COVERAGE / FINANCIAL ISSUES:: [facility] PRIMARY CARE PHYSICIAN:: Liz Fonseca POTENTIAL DISCHARGE NEEDS:: Coordinated return to [facility]. PATIENT/FAMILY EDUCATION NEEDS:: Review discharge instructions. ANTICIPATED BARRIERS TO DISCHARGE:: None identified. TRANSPORTATION:: [facility] Transport PLAN:: Silvestre will return to the [facility] once medically cleared. He will tranport via the facility's secure van.
--- NOTE | 2022-02-13 16:12 | W.PM.HP.N ---
Date of service: 02/13/22 Time of Service: 16:12 Assessment and Plan Assessment and plan (1) Bacteremia: Status: Ruled-out Assessment and plan: one bottle positive gram positive tita. repeat cultures pending. original set negative after 48 hours no fever, white count, with negative crp. given vanco in the ED. echo pending (2) Substance abuse: Status: Acute Assessment and plan: no withdrawal noted. continue clonidine and hydroxyzine (3) Mechanical heart valve present: Status: Acute Assessment and plan: history of AVR with mechanical valve. non compliant on coumadin and INR subtherapeutic. will resume coumadin with lovenox bridge. (4) Left knee pain: Status: Acute Assessment and plan: patient reports as chronic and due to bone on bone and states he needs knee replacement no suspicion of septic joint with normal wbc, crp and reassuring physical exam. continue to monitor. can have apap, ibuprofen and topical analgesia. will f/u outpatient with orthopedics. discussed with DR Gutierrez. History of Present Illness History of Present Illness Chief Complaint: positive blood culture PFSH All Active Problems (Updated 02/14/22 @ 14:10 by Theresa Wooten NP) Left knee pain (Acute) Mechanical heart valve present (Acute) Substance abuse (Acute) Chest pain (Acute) Abdominal pain (Acute) Hypertension (Chronic) Social History Smoking risk assessment performed?: No Alcohol Intake: never Drug use: Daily Substance use type: crack/cocaine, opiates and IV drugs Additional Social history: patient is in custody. Meds Allergies and Home Medications Allergies Allergy/AdvReac Type Severity Reaction Status Date / Time No Known Allergies Allergy Unverified 10/12/17 01:59 Home Medications Medication Instructions Recorded Confirmed Type ibuprofen 200 mg capsule 200 mg PO PRN PRN 10/12/17 02/11/22 History clonidine HCl 0.1 mg tablet 0.1 mg PO BID 02/11/22 02/13/22 History hydroxyzine HCl 50 mg tablet 50 mg PO BID 02/11/22 02/13/22 History warfarin 5 mg tablet 5 mg PO USEASDIRECTD 02/13/22 02/13/22 History enoxaparin 80 mg/0.8 mL 80 mg (0.8 mL) subcut Q12H #8 mL 02/14/22 Rx subcutaneous syringe Exam Const General: no acute distress HENMT Head: normal to inspection Mouth: moist mucous membranes Eyes General: appearance normal, both eyes and all related structures Neck Neck: normal visual inspection Resp Effort & Inspection: normal respiratory effort and able to speak in complete sentences Cardio Rate: regular rate GI Palpation: soft and tender Skin General skin exam: no rashes or lesions noted Neuro General: patient oriented x3 Extrem General: normal to inspection Left lower extremity: normal to inspection and full ROM; no edema Psych Mental Status: mental status grossly normal Speech and Movement: speech and movement normal Mood: congruent mood Affect: normal affect Results Labs Result diagrams: 02/14/22 06:25 02/14/22 06:25 Labs: Laboratory Results - last 24 hr 02/13/22 02/13/22 02/13/22 10:40 10:40 10:40 WBC RBC Hgb Hct MCV MCH MCHC RDW Plt Count MPV Immature Gran % Neutrophils % Lymphocytes % Monocytes % Eosinophils % Basophils % Nucleated RBC % Absolute Neutrophils Absolute Lymphocytes Absolute Monocytes Absolute Eosinophils Absolute Basophils ESR 2 VBG Lactate 1.5 H Sodium 143 Potassium 3.2 L Chloride 107 Carbon Dioxide 26.3 Anion Gap 9.7 BUN 22 H Creatinine 1.2 Est GFR (CKD-EPI 2020) 77.43 Glucose 99 Calcium 8.7 Total Bilirubin 0.7 AST 21 ALT 23 Alkaline Phosphatase 40 L Troponin I < 50 C-Reactive Protein < 0.05 Total Protein 7.7 Albumin 3.7 COVID-19 Source SARS-CoV-2 (PCR) 02/13/22 02/13/22 10:40 14:28 WBC 10.00 RBC 5.47 Hgb 15.0 Hct 44.1 MCV 81 MCH 27.4 MCHC 34.0 RDW 12.8 Plt Count 251 MPV 9.5 Immature Gran % 0.3 Neutrophils % 75.7 Lymphocytes % 17.0 Monocytes % 6.4 Eosinophils % 0.3 Basophils % 0.3 Nucleated RBC % 0.0 Absolute Neutrophils 7.57 H Absolute Lymphocytes 1.70 Absolute Monocytes 0.64 Absolute Eosinophils 0.03 Absolute Basophils 0.03 ESR VBG Lactate Sodium Potassium Chloride Carbon Dioxide Anion Gap BUN Creatinine Est GFR (CKD-EPI 2020) Glucose Calcium Total Bilirubin AST ALT Alkaline Phosphatase Troponin I C-Reactive Protein Total Protein Albumin COVID-19 Source Nasal/Nares SARS-CoV-2 (PCR) Negative Last Vital Signs Temp 36.7 C 02/13/22 14:49 Pulse 80 02/13/22 14:49 Resp 16 02/13/22 14:49 BP 160/100 H 02/13/22 14:49 Pulse Ox 100 02/13/22 14:49
[2022-02-13 18:06] LABS: INR 1.2 (0.9-1.1); Prothrombin Time 12.1 sec (9.3-11.0)
[2022-02-13] MEDS: cloNIDine 0.1 MG TAB PO (20:24)
[2022-02-13] MEDS: hydrOXYzine HCL 25 MG TAB 50 MG PO (20:24)
[2022-02-13] MEDS: Famotidine 20 MG TAB PO (20:24)
[2022-02-13] MEDS: Warfarin 5 MG TAB PO (20:50)
[2022-02-14] MEDS: Ibuprofen 600 MG TAB PO ×2 (00:12→11:48)
[2022-02-14] MEDS: Normal Saline Flush 10 ML SYR IVP ×3 (00:13→12:02)
[2022-02-14 06:15] VITALS: BP 159/93; PULSE 73; RESP 18; TEMP 36.7; O2SAT 100
[2022-02-14 07:31] LABS: HCT 41.4 % (40.0-50.0); HGB 14.3 g/dL (13.5-17.5); MCH 27.7 pg (27.0-33.0); MCHC 34.5 % (32.0-36.0); MCV 80 fL (80-95); MPV 10.3 fL (8.0-11.0); Platelet Count 235 10^3/uL (130-400); RBC 5.16 10^6/uL (4.36-5.78); RDW 13.1 % (11.8-14.1); RDW-SD 38.1 fL; WBC 8.55 10^3/uL (4.4-10.8)
[2022-02-14 07:53] LABS: Anion Gap 9.3 mmol/L (3-11); BUN 17 mg/dL (7-18); CO2 24.7 mmol/L (21.0-32.0); CREATININE 1.2 mg/dL (0.70-1.30); Calcium 8.8 mg/dL (8.5-10.1); Chloride 108 mmol/L (98-107); Estimated GFR 77.43 (mL/min/1.73m2); Glucose 95 mg/dL (74-106); Potassium 3.6 mmol/L (3.5-5.1); Sodium 142 mmol/L (136-145)
[2022-02-14 07:56] LABS: INR 1.2 (0.9-1.1); Prothrombin Time 12.1 sec (9.3-11.0)
[2022-02-14] MEDS: cloNIDine 0.1 MG TAB PO (08:11)
[2022-02-14] MEDS: Famotidine 20 MG TAB PO (08:11)
[2022-02-14] MEDS: hydrOXYzine HCL 25 MG TAB 50 MG PO (08:11)
[2022-02-14] MEDS: Acetaminophen 325 MG TAB 650 MG PO (08:20)
[2022-02-14 08:54] LABS: Lactate 3.4 mmol/L (0.6-1.4)
[2022-02-14] MEDS: Lactated Ringers 500 ML IV (09:17)
[2022-02-14] MEDS: Normal Saline 500 ML 100 ML IV (10:36)
[2022-02-14] MEDS: VANCOMYCIN/WATER (PEG) 1 GM/200 ML BAG IV (10:36)
[2022-02-14 11:47] VITALS: BP 149/91; PULSE 79; RESP 18; TEMP 36.8; O2SAT 98
[2022-02-14] MEDS: Enoxaparin 80 MG/0.8 ML SYR SC (11:48)
[2022-02-14 12:10] LABS: C-Reactive Protein < 0.05 mg/dL (0.0-0.3)
[2022-02-14 12:30] LABS: Lactate 2.2 mmol/L (0.6-1.4)
--- NOTE | 2022-02-14 13:31 | DSE_ITS ---
Date of service: 02/14/22 Time of Service: 13:31 DS: Diagnosis Discharge Diagnosis (1) Bacteremia: Status: Ruled-out (2) Substance abuse: Status: Acute Discharge Plan Disposition Patient Disposition: [facility] Condition: Stable Discharge Details Reason For Visit: Bacteremia Admit Date/Time: 02/13/22 13:23 Admit Provider: Troy Gutierrez Attending Provider: Troy Gutierrez Primary Care Provider: Liz Fonseca Hospital Course Hospital Course: This is a 41 year old male with history of aortic valve replacement, mechanical valve, who was first evaluated 02/11 for altered mental status. his work up wias unremarkable and he was discharged back to the correctional facility when he was residing. He was supposed to be taking coumadin but had been non compliant. His second set of blood cultures obtained on that visit where positive for a gram positive tita so he was asked to return to the ED for IV antiboitics. His repeat labs unremarkable with no elevated white count, CRP or fever. He was hemodynamically stable. only c/o was left knee pain which is chronic and reports he has bone on bone There was no redness or swelling or suspicion of septic joint. He was given IV vanco and hospitalist was asked to observe until cultures finalized. He remained medically stable. blood cultures finalized with containment with all other samples still negative to date. He will be bridged with enoxaparin until coumadin therapeutic with INR goal 2.5- 3.5. he is stable and ready to return to the correctional facility. He will be sent with 4 doses of enoxaparin to cover him until Wednesday evening as the [facility] staff state it will take them that long to obtain lovenox doses. discharge discussed with DR Son Tonalea Meds and New Rx's Prescriptions: New enoxaparin 80 mg/0.8 mL Syringe 80 mg subcut Q12H Qty: 8 0RF Rx Instructions: until INR above 2.5 Continued ibuprofen 200 MG capsule 200 mg PO PRN PRN clonidine HCl 0.1 mg Tablet 0.1 mg PO BID Rx Instructions: for 5 days hydroxyzine HCl 50 mg Tablet 50 mg PO BID Rx Instructions: for 5 days. warfarin 5 mg Tablet 5 mg PO USEASDIRECTD Rx Instructions: 5mg 1 tab every Wednesday starts 02/16/22 Discharge Instructions Instructions: Warfarin (By mouth) Additional Instructions: you need to take enoxaparin 80 mg injrection until your INR is therapeutic at 2.5-3.5 Stand Alone Forms: Nursing Discharge Form Activity:: Activity as Tolerated Equipment/Supplies:: No Equipment Needed Diet:: As Tolerated Discharge Orders Discharge Orders: Discharge Order (Routine); Ordered 02/14/22 Ordered By: Theresa Wooten DS: Summary Time Spent with Patient providing and/or coordinating discharge services: Less than 30 minutes Status at Discharge Functional status at discharge: independent ambulation Overall status at discharge: patient is back to baseline Mental Status: mental status grossly normal Speech and Movement: speech and movement normal Mood: congruent mood Affect: normal affect Exam Const General: no acute distress HENMT Head: normal to inspection Mouth: moist mucous membranes Eyes General: appearance normal, both eyes and all related structures Neck Neck: normal visual inspection Resp Effort & Inspection: normal respiratory effort and able to speak in complete sentences Cardio Rate: regular rate GI Palpation: soft and tender Skin General skin exam: no rashes or lesions noted Neuro General: patient oriented x3 Extrem General: normal to inspection Psych Mental Status: mental status grossly normal Speech and Movement: speech and movement normal Mood: congruent mood Affect: normal affect DS: Data Vitals/I&O Vitals and I&O: Vital Signs Temperature 36.8 C 02/14/22 11:47 Temperature Source Tympanic 02/14/22 11:47 Pulse 79 02/14/22 11:47 Pulse Rhythm Regular 02/14/22 00:00 Pulse 62 02/13/22 14:10 Respiratory Rate 18 02/14/22 11:47 Respiratory Effort Non-Labored 02/14/22 00:00 Respiratory Depth Normal 02/14/22 00:00 Respiratory Pattern Normal 02/14/22 00:00 Blood Pressure 149/91 H 02/14/22 11:47 Blood Pressure Mean 103 02/13/22 14:00 Blood Pressure Position Supine 02/13/22 10:55 Pulse Oximetry 98 02/14/22 11:47 Oxygen Delivery Method Room Air 02/14/22 11:47 Oxygen Flow Rate 0 02/14/22 11:47 Pain Level 8 02/14/22 11:48 Comment 02/14/22 11:06 Intake & Output 02/13/22 02/14/22 02/14/22 23:59 11:59 23:59 Intake Total 1540 / 1550 1121.667 / 1131.667 1131.667 Output Total 600 / 600 900 / 900 Balance 940 / 950 221.667 / 231.667 231.667 Intake: IV 1300 / 1310 761.667 / 771.667 771.667 Oral 240 / 240 360 / 360 Output: Urine 600 / 600 900 / 900 Other: Urine Color Pale Yellow Urine Appearance Clear Clear Urine Odor None Normal Voiding Methods Urinal Toilet Data Completed and Pending Labs on day of discharge: Labs from last 24 hours 02/14/22 02/14/22 02/14/22 15:02 12:10 08:40 WBC RBC Hgb Hct MCV MCH MCHC RDW Plt Count MPV PT INR VBG Lactate Cancelled 2.2 H* 3.4 H* Sodium Potassium Chloride Carbon Dioxide Anion Gap BUN Creatinine Est GFR (CKD-EPI 2020) Glucose Calcium C-Reactive Protein COVID-19 Source SARS-CoV-2 (PCR) 02/14/22 02/14/22 02/14/22 06:25 06:25 06:25 WBC 8.55 RBC 5.16 Hgb 14.3 Hct 41.4 MCV 80 MCH 27.7 MCHC 34.5 RDW 13.1 Plt Count 235 MPV 10.3 PT 12.1 H INR 1.2 H VBG Lactate Sodium Potassium Chloride Carbon Dioxide Anion Gap BUN Creatinine Est GFR (CKD-EPI 2020) Glucose Calcium C-Reactive Protein < 0.05 COVID-19 Source SARS-CoV-2 (PCR) 02/14/22 02/13/22 02/13/22 06:25 14:28 10:40 WBC RBC Hgb Hct MCV MCH MCHC RDW Plt Count MPV PT 12.1 H INR 1.2 H VBG Lactate Sodium 142 Potassium 3.6 Chloride 108 H Carbon Dioxide 24.7 Anion Gap 9.3 BUN 17 Creatinine 1.2 Est GFR (CKD-EPI 2020) 77.43 Glucose 95 Calcium 8.8 C-Reactive Protein COVID-19 Source Nasal/Nares SARS-CoV-2 (PCR) Negative 02/13/22 12:20 Blood Blood Culture - Pending 02/13/22 10:40 Blood Blood Culture - Pending Preliminary micro results at discharge 11/11/22 12:20 Blood Culture - Pending Blood 02/13/22 10:40 Blood Culture - Pending Blood PFSH All Active Problems (Updated 02/14/22 @ 13:31 by Theresa Wooten NP) Substance abuse (Acute) Chest pain (Acute) Abdominal pain (Acute) Hypertension (Chronic) Social History Smoking risk assessment performed?: No Alcohol Intake: never Drug use: Daily Substance use type: crack/cocaine, opiates and IV drugs Additional Social history: patient is in custody.
--- NOTE | 2022-02-14 14:20 | CMDISCH_ITS ---
- If Service Date Differs Date of service: 02/14/22 Time of Service: 14:20 LACE Index Scoring Tool - Questions: Length of Stay (in days): 1 Acuity (Admit via E.D.?): Yes E.D. Visits: 2 - Answers: Total Score: 6 Risk of Readmission: Low Risk Care Management Discharge Reason for Hospitalization: Bacteremia Discharge Plan: Silvestre is [facility] back [facility]. He will follow up with the [facility] staff at the [facility] and with his plan of care as instructed. He is transported by correctional officers via the facility's secure van. Patient/Family Education Needs: Review of discharge instructions including medications and limitations; discuss Ask Me Three.
== END 2022-02-14 14:38 | disposition home or self-care (01) ==
LOC: ER 13:45 → MS 14:44
PROVIDERS: Internal Medicine; Nurse Practitioner Acute Care; Student in an Organized Health Care Education/Training Program; Admitting Provider Family Medicine; Emergency Provider Student in an Organized Health Care Education/Training Program; PCP Nurse Practitioner Adult Health; Visit Provider Family Medicine
DX: R78.81 Bacteremia (principal); R53.1 Weakness; R07.89 Other chest pain; F11.10 Opioid abuse, uncomplicated; F14.10 Cocaine abuse, uncomplicated; Z20.822 Contact with and (suspected) exposure to COVID-19; Z95.2 Presence of prosthetic heart valve; Z79.01 Long term (current) use of anticoagulants; Z79.899 Other long term (current) drug therapy; I10 Essential (primary) hypertension; R10.9 Unspecified abdominal pain; M25.562 Pain in left knee
CPT/HCPCS: 36415; 80048; 80053; 85027; 85652; 87040; 87635; 93005; 96361; 96365; 96366; 96372; 99285; 83605; 84484; 85025; 85610; 86140; 93010; 99217; 99219; G0378; J1650

== ENCOUNTER 2022-02-16 12:26 | Outpatient (REF) | payer OTHER, SELFPAY ==
[2022-02-16 14:16] LABS: INR 1.7 (0.9-1.1); Prothrombin Time 16.9 sec (9.3-11.0)
== END 2022-02-16 12:27 | disposition home or self-care (01) ==
LOC: LBN 12:26
PROVIDERS: PCP Nurse Practitioner Adult Health; Visit Provider Emergency Medicine
DX: I35.1 Nonrheumatic aortic (valve) insufficiency (principal)
CPT/HCPCS: 85610

== ENCOUNTER 2022-02-19 14:20 | Outpatient (REF) | payer OTHER, SELFPAY ==
[2022-02-19 14:52] LABS: INR 2.4 (0.9-1.1); Prothrombin Time 22.9 sec (9.3-11.0)
== END 2022-02-19 14:21 | disposition home or self-care (01) ==
LOC: LBN 14:20
PROVIDERS: PCP Nurse Practitioner Adult Health
DX: I35.1 Nonrheumatic aortic (valve) insufficiency (principal)
CPT/HCPCS: 85610